=== PATIENT | female | born 1960 | race Caucasian/White ===

== ENCOUNTER 2018-05-24 11:02 | Inpatient (IN) | payer BC ==
[2018-05-24] MEDS ORDERED: Ondansetron 4 MG/2 ML SDV IV PRN (11:37)
[2018-05-24] MEDS ORDERED: Sodium Chloride 0.9% 10 ML Syringe FLUSH PRN (11:37)
[2018-05-24] MEDS ORDERED: Acetaminophen 325 MG Tab PO PRN (11:37)
[2018-05-24] MEDS ORDERED: Albuterol 0.083% 2.5 MG/3 ML Neb Soln NEB PRN (11:37)
[2018-05-24] MEDS ORDERED: Pantoprazole 40 MG Vial IVPUSH SCH (12:00)
[2018-05-24] MEDS: Lactated Ringers 1,000 ML IV SCH ×3 (13:32→22:05)
[2018-05-24] MEDS ORDERED: Bisacodyl 5 MG Tab PO ONE ×2 (14:20→20:00)
--- NOTE | 2018-05-24 14:21 | PCM.HP ---
H&P History of Present Illness - General Date of Service: 05/24/18 Admit Problem/Dx: Admission Diagnosis/Problem Admission Diagnosis/Problem Bleeding Source of Information: Patient, Family, Provider, RN Notes Reviewed History Limitations: Reports: No Limitations - History of Present Illness Initial Comments - Free Text/Narative: Ms. El is a 57-year-old woman who is admitted as a direct admission from the walk-in clinic for further evaluation and management of hematochezia. She was feeling well until early this morning when she woke with some cramping abdominal pain, since then has had several bloody loose stools. She presented to the walk-in clinic and was referred to the hospital for admission for evaluation of probable lower GI bleed. Bloody stools seem to tapered off somewhat since she is been at the walk-in clinic and now hospital. She has only intermittent episodes of cramping abdominal pain. Denies any fevers, chills, or sweats. No previous history of GI bleed and is otherwise fairly healthy except for COPD. - Related Data Allergies/Adverse Reactions: Allergies Allergy/AdvReac Type Severity Reaction Status Date / Time amoxicillin Allergy Cannot Verified 05/19/15 12:13 Remember tramadol Allergy Hives Verified 05/19/15 12:13 Home Medications: Home Meds Albuterol Sulfate [Proair Respiclick] 90 mcg IH QID 05/19/15 [History] Fluticasone/Vilanterol [Breo Ellipta Inhaler] 1 each IH DAILY 05/19/15 [History] Lisinopril/Hydrochlorothiazide [Lisinopril-Hctz 20-25 mg Tab] 1 each PO DAILY [History] Naproxen 1 tab PO ASDIRECTED 05/24/18 [History] Tiotropium [Spiriva Handihaler] 1 ampule IH ASDIRECTED 05/24/18 [History] Past Medical History Respiratory History: Reports: COPD [employer]ER History: Reports: Endocrine/Metabolic History: Reports: Diabetes, Gestational - Infectious Disease History Infectious Disease History: Reports: Chicken Pox - Past Surgical History HEENT Surgical History: Reports: Tonsillectomy Female Surgical History: Reports: Tubal Ligation Social & Family History - Tobacco Use Smoking Status *Q: Current Some Day Smoker Years of Tobacco use: 40 Packs/Tins Daily: 1 - Caffeine Use Caffeine Use: Reports: Coffee - Alcohol Use Days Per Week of Alcohol Use: 4 Number of Drinks Per Day: 3 Total Drinks Per Week: 12 - Recreational Drug Use Recreational Drug Use: No H&P Review of Systems - Review of Systems: Review Of Systems: See Below General: Denies: Fever, Chills, Weakness HEENT: Reports: No Symptoms Pulmonary: Reports: No Symptoms Cardiovascular: Reports: No Symptoms Gastrointestinal: Reports: Abdominal Pain, Diarrhea, Decreased Appetite, Hematochezia. Denies: Constipation, Difficulty Swallowing, Distension, Nausea, Vomiting Genitourinary: Reports: No Symptoms Musculoskeletal: Reports: No Symptoms Skin: Reports: No Symptoms Psychiatric: Reports: No Symptoms Neurological: Reports: No Symptoms Hematologic/Lymphatic: Reports: No Symptoms Immunologic: Reports: No Symptoms Exam - Exam Exam: See Below - Vital Signs Vital Signs: Last Vital Signs Temp 97.7 F 05/24/18 12:56 Pulse 71 05/24/18 12:56 Resp 15 05/24/18 12:56 BP 127/70 05/24/18 12:56 Pulse Ox 94 L 05/24/18 12:56 Weight: 97 lb - Exam Quality Assessment: DVT Prophylaxis General: Alert, Oriented, Cooperative, Mild Distress HEENT: Conjunctiva Clear, Hearing Intact, Mucosa Moist & [place], Normal Nasal Septum, Posterior Pharynx Clear, Pupils Equal Neck: Supple, Trachea Midline, +2 Carotid Pulse wo Bruit Lungs: Clear to Auscultation, Normal Respiratory Effort, Decreased Breath Sounds. No: Rhonchi, Wheezing Cardiovascular: Regular Rate, Regular Rhythm, Normal S1, Normal S2. No: Systolic Murmur, Diastolic Murmur GI/Abdominal Exam: Soft, Non-Tender, No Organomegaly, No Distention Back Exam: Normal Inspection, Full Range of Motion Extremities: Non-Tender, No Pedal Edema Skin: Warm, Dry, Intact Neurological: Cranial Nerves Intact, Strength Equal Bilateral, Normal Speech, Normal Tone, Sensation Intact. No: Focal Deficit Neuro Extensive - Mental Status: Alert, Oriented x3, Normal Mood/Affect, Normal Cognition, Memory Intact - Patient Data Lab Results Last 24 hrs: Laboratory Results - last 24 hr 05/24/18 05/24/18 05/24/18 Range/Units 11:20 11:37 11:41 WBC 12.1 H (4.5-11.0) K/uL RBC 4.43 (3.30-5.50) M/uL Hgb 13.9 (12.0-15.0) g/dL Hct 43.1 (36.0-48.0) % MCV 97 (80-98) fL MCH 31 (27-31) pg MCHC 32 (32-36) % Plt Count 377 (150-400) K/uL Neut % (Auto) 80 H (36-66) % Lymph % (Auto) 11 L (24-44) % [place] % (Auto) 6 (2-6) % Eos % (Auto) 2 (2-4) % Baso % (Auto) 0 (0-1) % Sodium 139 L (140-148) mmol/L Potassium 4.1 (3.6-5.2) mmol/L Chloride 100 (100-108) mmol/L Carbon Dioxide 29 (21-32) mmol/L Anion Gap 14.1 H (5.0-14.0) mmol/L BUN 18 (7-18) mg/dL Creatinine 1.0 (0.6-1.0) mg/dL Est Cr Clr Drug Dosing TNP Estimated GFR (MDRD) 57 L (>60) Glucose 95 (74-106) mg/dL Calcium 9.6 (8.5-10.1) mg/dL Magnesium 2.3 (1.8-2.4) mg/dL Total Bilirubin 0.7 (0.2-1.0) mg/dL AST 26 (15-37) U/L ALT 27 (12-78) U/L Alkaline Phosphatase 82 (46-116) U/L Total Protein 7.8 (6.4-8.2) g/dL Albumin 4.5 (3.4-5.0) g/dL Globulin 3.3 (2.3-3.5) g/dL Albumin/Globulin Ratio 1.4 (1.2-2.2) Blood Type A POSITIVE Gel Antibody Screen Negative Crossmatch See Detail Result Diagrams: 05/24/18 11:20 05/24/18 11:37 *Q Meaningful Use (ADM) - VTE *Q VTE Pharmacological Contraindications *Q: Active Hemorrhage - VTE Risk Assess *Q Each Risk Factor Represents 1 Point: Age 41 - 59 years, Abnormal Pulmonary Function (COPD) Total Score 1 Point Risk Factors: 2 Each Risk Factor Represents 2 Points: None Total Score 2 Point Risk Factors: 0 Each Risk Factor Represents 3 Points: None Total Score 3 Point Risk Factors: 0 Each Risk Factor Represents 5 Points: None Total Score 5 Point Risk Factors: 0 Venous Thromboembolism Risk Factor Score *Q: 2 Problem List Initiated/Reviewed/Updated: Yes Orders Last 24hrs: Active Orders 24 hr Category Date Time Status Patient Status [ADT] Routine ADT 05/24/18 11:37 Active Ambulate [RC] QID Care 05/24/18 11:37 Active Antiembolic Devices [RC] .Routine Care 05/24/18 11:37 Active Cardiac Monitoring [RC] .As Directed Care 05/24/18 11:38 Active Height and Weight [RC] DAILY Care 05/24/18 11:37 Active Intake and Output [RC] QSHIFT Care 05/24/18 11:37 Active Notify Provider Consults [RC] ASDIRECTED Care 05/24/18 11:40 Active Notify Provider Vital Signs [RC] ASDIRECTED Care 05/24/18 11:37 Active Oxygen Therapy [RC] PRN Care 05/24/18 11:37 Active Peripheral IV Care [RC] . DIRECTED Care 05/24/18 11:40 Active RT Aerosol Therapy [RC] ASDIRECTED Care 05/24/18 11:40 Active Up With Assistance [RC] ASDIRECTED Care 05/24/18 11:37 Active Up to Chair [RC] QID Care 05/24/18 11:37 Active VTE/DVT Education [RC] Per Unit Routine Care 05/24/18 11:37 Active Verify Patient Consent Obtain [RC] ASDIRECTED Care 05/24/18 14:20 Ordered Vital Signs [RC] Q4H Care 05/24/18 11:37 Active Consult to Physician [CONS] Routine Cons 05/24/18 11:37 Ordered Nothing per Oral Now Diet [DIET] Diet 05/24/18 Lunch Active BASIC METABOLIC PANEL,BMP [CHEM] Timed Lab 05/25/18 05:00 Ordered CBC WITH AUTO DIFF [HEME] AM Lab 05/25/18 05:11 Ordered HGB [HEMOGLOBIN] [HEME] Stat Lab 05/24/18 17:00 Ordered HGB [HEMOGLOBIN] [HEME] Stat Lab 05/24/18 23:00 Ordered MAGNESIUM [CHEM] AM Lab 05/25/18 05:11 Ordered PATIENT RETYPE [BBK] Stat Lab 05/24/18 11:41 Results RED BLOOD CELLS LP [BBK] Stat Lab 05/24/18 11:41 Results TYPE AND SCREEN [BBK] Stat Lab 05/24/18 11:41 Results Acetaminophen [Tylenol] Med 05/24/18 11:37 Active 650 mg PO Q4H PRN Albuterol Sulfate [Proair Respiclick] Med 05/24/18 16:00 Ordered 90 mcg IH QID Albuterol [Proventil Neb Soln] Med 05/24/18 11:37 Active 2.5 mg NEB Q4H PRN Bisacodyl [Dulcolax] Med 05/24/18 14:20 Once 10 mg PO ONETIME ONE Bisacodyl [Dulcolax] Med 05/24/18 20:00 Once 10 mg PO ONETIME ONE Fluticasone/Vilanterol [Breo Ellipta 100-25 MCG Med 05/25/18 09:00 Ordered Inhalation Kit] 1 each IH DAILY Lactated Ringers [Ringers, Lactated] 1,000 ml Med 05/24/18 11:45 Active IV ASDIRECTED Lisinopril [Prinivil] Med 05/25/18 09:00 Active 20 mg PO DAILY Ondansetron [Zofran] Med 05/24/18 11:37 Active 4 mg IV Q4H PRN Pantoprazole [ProTONIX IV] Med 05/24/18 12:00 Active 40 mg IVPUSH Q24H Polyethylene Glycol 3350 [MiraLAX] Med 05/24/18 17:00 Once 238 gm PO ONETIME ONE Sodium Chloride 0.9% [Saline Flush] Med 05/24/18 11:37 Active 10 ml FLUSH ASDIRECTED PRN hydroCHLOROthiazide Med 05/25/18 09:00 Active 25 mg PO DAILY Peripheral IV Insertion Adult [OM.PC] Routine Oth 05/24/18 11:37 Ordered Schedule Procedure [COMM] Routine Oth 05/24/18 14:20 Ordered Sequential Compression Device [OM.PC] Per Unit Routine Oth 05/24/18 11:38 Ordered VTE Pharmacological Contraindications [AST] Per Unit Oth 05/24/18 11:37 Ordered Routine Resuscitation Status Routine Resus Stat 05/24/18 11:37 Ordered Medication Orders Acetaminophen (Tylenol) 650 mg PO Q4H PRN PRN Reason: Pain (Mild 1-3)/fever Albuterol (Proventil Neb Soln) 2.5 mg NEB Q4H PRN PRN Reason: Shortness Of Breath/wheezing Bisacodyl (Dulcolax) 10 mg PO ONETIME ONE Stop: 05/24/18 14:21 Bisacodyl (Dulcolax) 10 mg PO ONETIME ONE Stop: 05/24/18 20:01 Hydrochlorothiazide (Hydrochlorothiazide) 25 mg PO DAILY [facility] Lactated Ringer's (Ringers, Lactated) 1,000 mls @ 125 mls/hr IV ASDIRECTED [facility] Last Admin: 05/24/18 13:32 Dose: 125 mls/hr Lisinopril (Prinivil) 20 mg PO DAILY [facility] Non-Formulary Medication (Albuterol Sulfate [Proair Respiclick]) 90 mcg IH QID [facility] Non-Formulary Medication (Fluticasone/Vilanterol [Breo Ellipta 100-25 Mcg Inhalation Kit]) 1 each IH DAILY [facility] Ondansetron HCl (Zofran) 4 mg IV Q4H PRN PRN Reason: Nausea/Vomiting Pantoprazole Sodium (Protonix Iv) 40 mg IVPUSH Q24H [facility] Last Admin: 05/24/18 13:31 Dose: 40 mg Sodium Chloride (Saline Flush) 10 ml FLUSH ASDIRECTED PRN PRN Reason: Keep Vein Open Assessment/Plan Comment:: ASSESSMENT AND PLAN LOWER GI BLEED-several episodes of bloody diarrhea associated with cramping abdominal pain noted early into late morning. Currently on no blood thinning medication and has no prior history of GI bleed. Denies any fevers, chills, or sweats. -Nothing by mouth -IV fluids for hydration -Colonoscopy prep -Serial hemoglobin levels -Type and cross 2 units of red blood cells for future use if needed -Consult Dr. Allen for colonoscopy in a.m. COPD-no evidence of acute exacerbation -Continue outpatient medications -Nebulized albuterol as needed MAINTENANCE ISSUES -DVT prophylaxis; SCUDs, hold on anticoagulation because of acute bleeding -GI prophylaxis; Protonix IV -Maharaj catheter; not indicated -Nutrition; nothing by mouth -Nicotine dependence; 14 mg nicotine patch and nicotine inhaler CODE STATUS-FULL CODE ADMISSION STATUS-patient will be admitted to inpatient status, expect at least a 2 night hospital stay for evaluation and management of problems as outlined above. At the time of this admission I do not reasonably expected evaluation and management of this problem will require more than a 96 hour hospital stay. DISPOSITION-anticipate discharge to home after the hospital stay. PRIMARY CARE PROVIDER-Eleuterio Fitzgerald
[2018-05-24] MEDS ORDERED: Nicotine 10 MG/Cartridge Inhaler 168 Cartridges/Box INH PRN (14:23)
[2018-05-24] MEDS: Nicotine 14 MG/24 Hr Patch TRDERM SCH (15:01)
[2018-05-24] MEDS ORDERED: Polyethylene Glycol 3350 Powder 238 GM Bot PO ONE (17:00)
[2018-05-25] MEDS: Lactated Ringers 1,000 ML IV SCH (04:39)
[2018-05-25] MEDS ORDERED: fentaNYL 100 MCG/2 ML SDV ONE (07:13)
[2018-05-25] MEDS ORDERED: Midazolam 1 MG/ML 2 ML SDV ONE (07:14)
[2018-05-25] MEDS ORDERED: Propofol 200 MG/20 ML SDV ONE (07:14)
[2018-05-25] MEDS ORDERED: Lactated Ringers 0 ML ONE (07:48)
[2018-05-25] MEDS ORDERED: Lisinopril 20 MG Tab PO SCH (09:00)
[2018-05-25] MEDS ORDERED: Non-Formulary Medication 1 Each (Fluticasone/Vilanterol [Breo Ellipta 100-25 Mcg Inhalatio IH SCH (09:00)
[2018-05-25] MEDS ORDERED: BREO ELLIPTA INH SCH (09:00)
[2018-05-25] MEDS ORDERED: Hydrochlorothiazide 25 MG Tab PO SCH (09:00)
[2018-05-25 09:45] VITALS: BP 145/73
[2018-05-25] MEDS: Nicotine 14 MG/24 Hr Patch TRDERM SCH (10:08)
--- NOTE | 2018-05-25 10:33 | PCM.DCSUM1 ---
Discharge Summary - Hospital Course Brief History: Ms. Tran is a 57-year-old woman who is admitted as a direct admission from the clinic for further evaluation and management of cramping abdominal pain and bloody diarrhea. - Discharge Data Discharge Date: 05/25/18 Discharge Disposition: Home, Self-Care 01 Condition: Fair - Discharge Diagnosis/Problem(s) (1) Infectious colitis SNOMED Code(s): 15016219 ICD Code: A09 - INFECTIOUS GASTROENTERITIS AND COLITIS, UNSPECIFIED Status : Acute Current Visit: Yes (2) Hematochezia SNOMED Code(s): 078141693 ICD Code: K92.1 - MELENA Status: Acute Current Visit: Yes (3) Diarrhea SNOMED Code(s): 04040440 ICD Code: R19.7 - DIARRHEA, UNSPECIFIED Status: Acute Current Visit: Yes - Patient Summary/Data Consults: Consultations 05/24/18 11:37 Consult to Physician [CONS] Routine Consulting Provider: Sachin Allen Courtesy Call Completed to Consulting Physician: Yes Reason for Consult: Lower GI bleed, colonoscopy in a.m. Hospital Course: Ms. El is a 57-year-old woman who is admitted as a direct admission from the walk-in clinic for further evaluation and management of hematochezia. She was feeling well until early this morning when she woke with cramping abdominal pain, since then has had several bloody loose stools. She presented to the walk-in clinic and was referred to the hospital for admission for evaluation of probable lower GI bleed. Bloody stools seem to tapered off somewhat since she has been at the walk-in clinic and now at the hospital. She has only intermittent episodes of cramping abdominal pain. Denies any fevers, chills, or sweats. No previous history of GI bleed and is otherwise fairly healthy except for COPD. On admission she was given IV fluids for hydration and kept nothing by mouth. Serial hemoglobin levels were obtained and did drop with hydration, there was no further evidence of active bleeding after admission to the hospital. On the morning after admission she was seen and evaluated by Dr. Allen, colonoscopy was performed. Colonoscopy showed evidence of diverticulitis but no evidence of active bleeding. She was noted to have mild to moderate colitis in the sigmoid colon which was felt to be the source of recent bloody diarrhea. No other obvious lesions or abnormalities were identified. She originally had been admitted as inpatient status as it was felt that she would require at least a 2 night hospitalization. With stable hemoglobin and no further evidence of active bleeding as well as the colitis is probable source of bleeding was felt she could be safely discharged home after one night of hospitalization. She will be discharged home on oral antibiotic therapy for one week with ciprofloxacin and Flagyl. She will return to the hospital if she notes increase in symptoms specifically diarrhea, bloody stool, increasing abdominal pain, or fever. Activity will be as tolerated and she will be on a soft low residue diet. Follow -up appointment will be scheduled with her primary care provider within one week. Cultures and biopsies obtained at the time of colonoscopy are not available at the time of discharge and should be reviewed at the time of outpatient follow-up. She is been instructed to take probiotic tablet 1 twice daily for the next several weeks. She has also been counseled and encouraged to consider smoking cessation especially in light of her underlying COPD. - Patient Instructions Diet: GI Soft/Low Residue/Low Fiber Activity: As Tolerated Other/Special Instructions: Please schedule follow-up appointment with primary care provider within one week. Take a probiotic tablet 1 twice daily for the next several weeks. - Discharge Plan *PRESCRIPTION DRUG MONITORING PROGRAM REVIEWED*: Not Applicable *COPY OF PRESCRIPTION DRUG MONITORING REPORT IN PATIENT SONAM: Not Applicable Prescriptions/Med Rec: RX: Ciprofloxacin [Ciprofloxacin HCl] 500 mg PO BID #14 tab metroNIDAZOLE [Flagyl] 500 mg PO Q8H #21 tab Home Medications: Home Meds RX: Albuterol Sulfate [Proair Respiclick] 90 mcg IH QID 05/19/15 [History] RX: Fluticasone/Vilanterol [Breo Ellipta 100-25 MCG Inhalation Kit] 1 each IH DAILY 05/19/15 [History] RX: Lisinopril/Hydrochlorothiazide [Lisinopril-Hctz 20-25 mg Tab] 1 each PO DAILY 05/19/15 [History] RX: Naproxen 1 tab PO ASDIRECTED 05/24/18 [History] RX: Tiotropium [Spiriva Handihaler] 1 ampule IH ASDIRECTED 05/24/18 [History] RX: Ciprofloxacin [Ciprofloxacin HCl] 500 mg PO BID #14 tab 05/25/18 [Rx] metroNIDAZOLE [Flagyl] 500 mg PO Q8H #21 tab 05/25/18 [Rx] - Discharge Summary/Plan Comment DC Time >30 min.: No - Patient Data Vitals - Most Recent: Last Vital Signs Temp 96.6 F 05/25/18 09:16 Pulse 74 05/25/18 09:48 Resp 18 05/25/18 09:48 BP 145/73 H 05/25/18 09:48 Pulse Ox 97 05/25/18 09:48 Weight - Most Recent: 97 lb I&O - Last 24 hours: Intake & Output 05/24/18 05/25/18 05/25/18 22:59 06:59 14:59 Intake Total 1700 Balance 1700 Lab Results - Last 24 hrs: Laboratory Results - last 24 hr 05/24/18 05/24/18 05/24/18 Range/Units 11:20 11:37 11:41 WBC 12.1 H (4.5-11.0) K/uL RBC 4.43 (3.30-5.50) M/uL Hgb 13.9 (12.0-15.0) g/dL Hct 43.1 (36.0-48.0) % MCV 97 (80-98) fL MCH 31 (27-31) pg MCHC 32 (32-36) % Plt Count 377 (150-400) K/uL Neut % (Auto) 80 H (36-66) % Lymph % (Auto) 11 L (24-44) % [place] % (Auto) 6 (2-6) % Eos % (Auto) 2 (2-4) % Baso % (Auto) 0 (0-1) % Sodium 139 L (140-148) mmol/L Potassium 4.1 (3.6-5.2) mmol/L Chloride 100 (100-108) mmol/L Carbon Dioxide 29 (21-32) mmol/L Anion Gap 14.1 H (5.0-14.0) mmol/L BUN 18 (7-18) mg/dL Creatinine 1.0 (0.6-1.0) mg/dL Est Cr Clr Drug Dosing TNP Estimated GFR (MDRD) 57 L (>60) Glucose 95 (74-106) mg/dL Calcium 9.6 (8.5-10.1) mg/dL Magnesium 2.3 (1.8-2.4) mg/dL Total Bilirubin 0.7 (0.2-1.0) mg/dL AST 26 (15-37) U/L ALT 27 (12-78) U/L Alkaline Phosphatase 82 (46-116) U/L Total Protein 7.8 (6.4-8.2) g/dL Albumin 4.5 (3.4-5.0) g/dL Globulin 3.3 (2.3-3.5) g/dL Albumin/Globulin Ratio 1.4 (1.2-2.2) Blood Type A POSITIVE Gel Antibody Screen Negative Crossmatch See Detail 05/24/18 05/24/18 05/25/18 Range/Units 17:12 23:00 05:50 WBC 6.8 (4.5-11.0) K/uL RBC 3.92 (3.30-5.50) M/uL Hgb 13.4 13.1 12.4 (12.0-15.0) g/dL Hct 38.3 (36.0-48.0) % MCV 98 (80-98) fL MCH 32 H (27-31) pg MCHC 32 (32-36) % Plt Count 288 (150-400) K/uL Neut % (Auto) 45 (36-66) % Lymph % (Auto) 37 (24-44) % [place] % (Auto) 9 H (2-6) % Eos % (Auto) 9 H (2-4) % Baso % (Auto) 1 (0-1) % Sodium (140-148) mmol/L Potassium (3.6-5.2) mmol/L Chloride (100-108) mmol/L Carbon Dioxide (21-32) mmol/L Anion Gap (5.0-14.0) mmol/L BUN (7-18) mg/dL Creatinine (0.6-1.0) mg/dL Est Cr Clr Drug Dosing Estimated GFR (MDRD) (>60) Glucose (74-106) mg/dL Calcium (8.5-10.1) mg/dL Magnesium (1.8-2.4) mg/dL Total Bilirubin (0.2-1.0) mg/dL AST (15-37) U/L ALT (12-78) U/L Alkaline Phosphatase (46-116) U/L Total Protein (6.4-8.2) g/dL Albumin (3.4-5.0) g/dL Globulin (2.3-3.5) g/dL Albumin/Globulin Ratio (1.2-2.2) Blood Type Gel Antibody Screen Crossmatch 05/25/18 05/25/18 Range/Units 05:50 05:50 WBC (4.5-11.0) K/uL RBC (3.30-5.50) M/uL Hgb (12.0-15.0) g/dL Hct (36.0-48.0) % MCV (80-98) fL MCH (27-31) pg MCHC (32-36) % Plt Count (150-400) K/uL Neut % (Auto) (36-66) % Lymph % (Auto) (24-44) % [place] % (Auto) (2-6) % Eos % (Auto) (2-4) % Baso % (Auto) (0-1) % Sodium 139 L (140-148) mmol/L Potassium 3.6 (3.6-5.2) mmol/L Chloride 101 (100-108) mmol/L Carbon Dioxide 30 (21-32) mmol/L Anion Gap 11.6 (5.0-14.0) mmol/L BUN 10 (7-18) mg/dL Creatinine 0.9 (0.6-1.0) mg/dL Est Cr Clr Drug Dosing 46.75 Estimated GFR (MDRD) > 60 (>60) Glucose 115 H (74-106) mg/dL Calcium 9.1 (8.5-10.1) mg/dL Magnesium 1.8 (1.8-2.4) mg/dL Total Bilirubin (0.2-1.0) mg/dL AST (15-37) U/L ALT (12-78) U/L Alkaline Phosphatase (46-116) U/L Total Protein (6.4-8.2) g/dL Albumin (3.4-5.0) g/dL Globulin (2.3-3.5) g/dL Albumin/Globulin Ratio (1.2-2.2) Blood Type Gel Antibody Screen Crossmatch ANGELA Results - Last 24 hrs: Microbiology 05/25/18 09:08 Clostridium difficile (PCR) - Final Stool / Feces - Stool, Liquid NEGATIVE CDIFF TOXIN 05/25/18 09:08 Stool for WBCs - Final Stool / Feces - Stool, Liquid Med Orders - Current: Current Medications Acetaminophen (Tylenol) 650 mg PO Q4H PRN PRN Reason: Pain (Mild 1-3)/fever Last Admin: 05/25/18 00:17 Dose: 650 mg Albuterol (Proventil Neb Soln) 2.5 mg NEB Q4H PRN PRN Reason: Shortness Of Breath/wheezing Albuterol (Ventolin Hfa) 0 gm INH QIDRT [facility] Last Admin: 05/25/18 07:28 Dose: 2 puff Hydrochlorothiazide (Hydrochlorothiazide) 25 mg PO DAILY [facility] Last Admin: 05/25/18 09:40 Dose: 25 mg Lactated Ringer's (Ringers, Lactated) 1,000 mls @ 125 mls/hr IV ASDIRECTED [facility] Last Admin: 05/25/18 04:39 Dose: 125 mls/hr Lisinopril (Prinivil) 20 mg PO DAILY [facility] Last Admin: 05/25/18 09:40 Dose: 20 mg Nicotine (Habitrol) 14 mg TRDERM DAILY [facility] Last Admin: 05/25/18 10:08 Dose: 14 mg Nicotine (Nicotrol) 10 mg INH Q1H PRN PRN Reason: Other Last Admin: 05/24/18 15:00 Dose: 10 mg Ondansetron HCl (Zofran) 4 mg IV Q4H PRN PRN Reason: Nausea/Vomiting Pantoprazole Sodium (Protonix Iv) 40 mg IVPUSH Q24H [facility] Last Admin: 05/24/18 13:31 Dose: 40 mg Breo Ellipta 200/25 (Inhaler (Ptom)) 0 each INH DAILY [facility] Last Admin: 05/25/18 08:03 Dose: 1 each Sodium Chloride (Saline Flush) 10 ml FLUSH ASDIRECTED PRN PRN Reason: Keep Vein Open Discontinued Medications Bisacodyl (Dulcolax) 10 mg PO ONETIME ONE Stop: 05/24/18 14:21 Last Admin: 05/24/18 15:03 Dose: 10 mg Bisacodyl (Dulcolax) 10 mg PO ONETIME ONE Stop: 05/24/18 20:01 Last Admin: 05/24/18 20:37 Dose: 10 mg Fentanyl (Sublimaze) Confirm Administered Dose 100 mcg .ROUTE .STK-MED ONE Stop: 05/25/18 07:14 Lactated Ringer's (Ringers, Lactated) Confirm Administered Dose 1,000 mls @ as directed .ROUTE .STK-MED ONE Stop: 05/25/18 07:49 Midazolam HCl (Versed 1 Mg/Ml) Confirm Administered Dose 2 mg .ROUTE .STK-MED ONE Stop: 05/25/18 07:15 Polyethylene Glycol (Miralax) 238 gm PO ONETIME ONE Stop: 05/24/18 17:01 Last Admin: 05/24/18 17:09 Dose: 238 gm Propofol (Diprivan 20 Ml) Confirm Administered Dose 200 mg .ROUTE .STK-MED ONE Stop: 05/25/18 07:15 - Exam Quality Assessment: Reports: DVT Prophylaxis General: Reports: Alert, Oriented, Cooperative, Mild Distress Lungs: Reports: Clear to Auscultation, Normal Respiratory Effort, Decreased Breath Sounds. Denies: Wheezing Cardiovascular: Reports: Regular Rate, Regular Rhythm, No Murmurs GI/Abdominal Exam: Soft, No Organomegaly, Tender. No: Distended, Guarding, Rigid, Rebound Extremities: Non-Tender, No Pedal Edema *Q Meaningful Use (DIS) - VTE *Q VTE Pharmacological Contraindications *Q: Active Hemorrhage
--- NOTE | 2018-06-03 11:55 | OR ---
DATE OF PROCEDURE: 05/25/2018 PREOPERATIVE DIAGNOSIS: Recent rectal bleeding. POSTOPERATIVE DIAGNOSES: 1. Recent rectal bleeding with probable colitis involving the descending and sigmoid colon and to a lesser extent the cecum (transverse colon and rectum spared). 2. Valladares-diverticulosis. 3. No active blood or bleeding seen. PROCEDURE: Flexible colonoscopy with: 1. Collection of stool for culture and sensitivity (02114). 2. Biopsies of sigmoid colon for histologic evaluation ([id number]). ANESTHESIA: IV sedation. INDICATION FOR PROCEDURE: This is a 57-year-old admitted yesterday with an episode of rectal bleeding. The plan is to proceed with flexible colonoscopy with biopsies and/or polypectomy as indicated. Potential risks including bleeding and perforation were discussed, and the patient wishes to proceed. DETAILS OF PROCEDURE: The patient was taken to the operating room and placed in a left lateral decubitus position. IV sedation was administered. Initial digital rectal exam was performed, it was unremarkable. Colonoscope was passed into the rectum and retroflexion revealed what were only some minimally excoriated hemorrhoids. Scope was eventually passed to the cecum. The prep was fairly good. There was a small amount of liquid stool present. At no point during the entire exam was there any blood or bleeding identified. In the sigmoid colon, there were some areas of reddened and edematous colon. No obvious ulcerations or erosions were present, but this would be consistent with recent bleeding source. This extended from the sigmoid colon up to the descending colon. As we entered the area of the splenic flexure and transverse colon, the mucosa appeared to be normalized. There was slight patchy redness and edema in the cecum also, but this was not nearly as involved as the sigmoid colon and descending colon. Throughout the exam, stool was obtained and sent for microbiologic workup. The patient had also valladares-diverticulosis, which was otherwise uncomplicated in appearance. Scope was then withdrawn and after biopsy had been completed, minimal bleeding was seen and the procedure concluded. The patient was taken to the recovery room in satisfactory condition. Case will be reviewed with Dr. Malave, on-call hospitalist, regarding management. Sachin Allen MD /[id number]
== END 2018-05-25 11:02 | disposition home or self-care (01) | DRG 249 ==
LOC: JP.ICU 11:02
PROVIDERS: ADMIT Hospitalist; ATTEND Hospitalist
PROC: 0DBN8ZX Excision of Sigmoid Colon, Via Natural or Artificial Opening Endoscopic, Diagnostic (ICD-10-PCS; principal; 2018-05-25)
PROC: 0D9E8ZX Drainage of Large Intestine, Via Natural or Artificial Opening Endoscopic, Diagnostic (ICD-10-PCS; 2018-05-25)
DX: A09 Infectious gastroenteritis and colitis, unspecified (principal); K92.1 Melena; K57.30 Diverticulosis of large intestine without perforation or abscess without bleeding; J44.9 Chronic obstructive pulmonary disease, unspecified; K57.92 Diverticulitis of intestine, part unspecified, without perforation or abscess without bleeding; F17.210 Nicotine dependence, cigarettes, uncomplicated; I10 Essential (primary) hypertension; K21.9 Gastro-esophageal reflux disease without esophagitis; Z88.6 Allergy status to analgesic agent; Z88.1 Allergy status to other antibiotic agents; Z79.899 Other long term (current) drug therapy
CPT/HCPCS: 36415; 80048; 80053; 83735; 85018; 85025; 86850; 86900; 86901; 86920; 86922; 87046; 87177; 87209; 87493; 87899; 88305; 89055; 94640; A9270-GY; C9113; J2250; J2704; J3010; J7120

== ENCOUNTER 2021-12-04 13:46 | Emergency (ER) | payer BC ==
[2021-12-04] MEDS ORDERED: Benzonatate 100 MG Cap PO ONE (15:19)
[2021-12-04] MEDS ORDERED: Albuterol/Ipratropium 3.0-0.5 MG/3 ML Neb Soln NEB ONE (15:19)
[2021-12-04] MEDS ORDERED: predniSONE 20 MG Tab PO ONE (15:22)
[2021-12-04 16:20] VITALS: BP 120/62; PULSE 88
== END 2021-12-04 17:01 | disposition home or self-care (01) ==
LOC: JP.ED 13:46
DX: J44.1 Chronic obstructive pulmonary disease with (acute) exacerbation (principal); F17.210 Nicotine dependence, cigarettes, uncomplicated; Z88.1 Allergy status to other antibiotic agents; Z88.5 Allergy status to narcotic agent; Z79.899 Other long term (current) drug therapy; Z20.822 Contact with and (suspected) exposure to COVID-19
CPT/HCPCS: 36415; 71046; 83880; 84145; 85025; 86140; 87635; 94640; 99285; A9270; J7512; J7620; U0002

== ENCOUNTER 2022-02-10 01:39 | Inpatient (IN) | payer BC ==
[2022-02-10] MEDS ORDERED: Sodium Chloride 0.9% 10 ML Syringe FLUSH PRN (01:42)
[2022-02-10] MEDS ORDERED: methylPREDNISolone Sodium Succinate 125 MG/2 ML SDV IVPUSH ONE (01:42)
[2022-02-10 02:33] LABS: CORONAVIRUS COVID-19 NAA NEGATIVE (NEGATIVE)
[2022-02-10 02:39] LABS: ESTIMATED GFR 83 mL/min (>60)
[2022-02-10] MEDS ORDERED: Albuterol/Ipratropium 3.0-0.5 MG/3 ML Neb Soln NEB PRN (02:43)
[2022-02-10] MEDS ORDERED: Morphine 2 MG/ML SYRINGE IVPUSH PRN (04:39)
[2022-02-10] MEDS ORDERED: Ondansetron 4 MG/2 ML SDV IV PRN (04:39)
[2022-02-10] MEDS ORDERED: oxyCODONE 5 MG Tab PO PRN (04:39)
[2022-02-10] MEDS ORDERED: Ondansetron 4 MG Tab.DIS PO PRN (04:39)
[2022-02-10] MEDS ORDERED: Docusate Sodium 100 MG Cap PO PRN (04:39)
[2022-02-10] MEDS ORDERED: Albuterol 0.083% 2.5 MG/3 ML Neb Soln NEB PRN (04:39)
[2022-02-10] MEDS ORDERED: Bisacodyl 5 MG Tab PO PRN (04:39)
[2022-02-10] MEDS ORDERED: cefTRIAXone 1 GM in Sodium Chloride 0.9% 50 ML IV SCH (04:45)
[2022-02-10] MEDS ORDERED: Sodium Chloride 0.9% 1,000 ML IV SCH (04:45)
[2022-02-10] MEDS: Nicotine 14 MG/24 Hr Patch TRDERM SCH ×2 (05:31→08:28)
[2022-02-10] MEDS ORDERED: Albuterol/Ipratropium 3.0-0.5 MG/3 ML Neb Soln NEB SCH (06:00)
[2022-02-10] MEDS: Albuterol/Ipratropium 3.0-0.5 MG/3 ML Neb Soln NEB SCH ×4 (07:12→20:33)
[2022-02-10] MEDS ORDERED: methylPREDNISolone Sodium Succinate 40 MG/1 ML SDV IV SCH (08:10)
[2022-02-10] MEDS: Pantoprazole 40 MG Tab.CR PO SCH (08:29)
[2022-02-10] MEDS: methylPREDNISolone Sodium Succinate 125 MG/2 ML SDV IV SCH ×3 (08:29→19:44)
[2022-02-10] MEDS: Enoxaparin 40 MG/0.4 ML Syringe SUBCUT SCH (08:30)
[2022-02-10] MEDS: Losartan 50 MG Tab PO SCH (08:30)
[2022-02-10] MEDS ORDERED: Pantoprazole 40 MG Vial IV SCH (09:00)
[2022-02-10] MEDS: Codeine/guaiFENesin 10-100 MG/5 ML Syrup 5 ML Cup PO PRN ×2 (11:00→17:02)
[2022-02-10] MEDS: Doxycycline 100 MG in Sodium Chloride 0.9% 100 ML IV SCH (17:26)
[2022-02-10] MEDS: Benzonatate 100 MG Cap PO PRN (20:33)
[2022-02-11] MEDS: methylPREDNISolone Sodium Succinate 125 MG/2 ML SDV IV SCH ×3 (02:51→14:49)
[2022-02-11] MEDS: cefTRIAXone 1 GM in Sodium Chloride 0.9% 50 ML IV SCH (05:10)
[2022-02-11] MEDS: Doxycycline 100 MG in Sodium Chloride 0.9% 100 ML IV SCH ×2 (05:44→17:58)
[2022-02-11] MEDS: Albuterol/Ipratropium 3.0-0.5 MG/3 ML Neb Soln NEB SCH ×4 (07:36→21:15)
[2022-02-11] MEDS: Pantoprazole 40 MG Tab.CR PO SCH (07:47)
[2022-02-11] MEDS: Losartan 50 MG Tab PO SCH (08:07)
[2022-02-11] MEDS: Nicotine 14 MG/24 Hr Patch TRDERM SCH (08:07)
[2022-02-11] MEDS: Enoxaparin 40 MG/0.4 ML Syringe SUBCUT SCH (08:07)
[2022-02-11] MEDS: Acetaminophen 325 MG Tab PO PRN ×2 (10:12→22:42)
[2022-02-11] MEDS: Codeine/guaiFENesin 10-100 MG/5 ML Syrup 5 ML Cup PO PRN ×2 (11:25→21:26)
[2022-02-11] MEDS ORDERED: Metoprolol Tartrate 25 MG Tab PO ONE ×2 (15:15)
[2022-02-11] MEDS: Benzonatate 100 MG Cap PO PRN (17:11)
[2022-02-11] MEDS: methylPREDNISolone Sodium Succinate 40 MG/1 ML SDV IVPUSH SCH (21:15)
[2022-02-11] MEDS: Metoprolol Tartrate 25 MG Tab PO SCH (21:15)
[2022-02-12] MEDS: cefTRIAXone 1 GM in Sodium Chloride 0.9% 50 ML IV SCH (05:12)
[2022-02-12] MEDS: methylPREDNISolone Sodium Succinate 40 MG/1 ML SDV IVPUSH SCH (05:12)
[2022-02-12] MEDS: Doxycycline 100 MG in Sodium Chloride 0.9% 100 ML IV SCH (06:53)
[2022-02-12] MEDS: Albuterol/Ipratropium 3.0-0.5 MG/3 ML Neb Soln NEB SCH ×2 (07:30→11:02)
[2022-02-12 07:36] VITALS: BP 152/78; PULSE 88
[2022-02-12] MEDS: Codeine/guaiFENesin 10-100 MG/5 ML Syrup 5 ML Cup PO PRN (07:41)
[2022-02-12] MEDS: Pantoprazole 40 MG Tab.CR PO SCH (07:41)
[2022-02-12] MEDS: Losartan 50 MG Tab PO SCH (08:18)
[2022-02-12] MEDS: Metoprolol Tartrate 25 MG Tab PO SCH (08:19)
[2022-02-12] MEDS: Nicotine 14 MG/24 Hr Patch TRDERM SCH (08:19)
[2022-02-12] MEDS: Enoxaparin 40 MG/0.4 ML Syringe SUBCUT SCH (08:19)
== END 2022-02-12 11:28 | disposition home or self-care (01) | DRG 133 ==
LOC: JP.ED 01:39 → JP.MS 04:36
PROVIDERS: ADMIT Hospitalist; ATTEND Hospitalist
DX: J96.02 Acute respiratory failure with hypercapnia (principal); J44.1 Chronic obstructive pulmonary disease with (acute) exacerbation; F17.210 Nicotine dependence, cigarettes, uncomplicated; E78.00 Pure hypercholesterolemia, unspecified; I10 Essential (primary) hypertension; M54.9 Dorsalgia, unspecified; M54.2 Cervicalgia; G89.29 Other chronic pain; Z20.822 Contact with and (suspected) exposure to COVID-19; Z88.0 Allergy status to penicillin; Z79.51 Long term (current) use of inhaled steroids; Z79.899 Other long term (current) drug therapy
CPT/HCPCS: 0241U; 36415; 71045; 71045-26; 80053; 85025; 86140; 94640; A9270-GY; J0696; J1650; J2920; J2930; J3490; J7030; J7620

== ENCOUNTER 2022-06-06 06:42 | Emergency (ER) | payer BC ==
[2022-06-06 07:04] VITALS: BP 154/67; PULSE 94
[2022-06-06] MEDS ORDERED: Sodium Chloride 0.9% 10 ML Syringe FLUSH PRN (07:06)
[2022-06-06] MEDS ORDERED: methylPREDNISolone Sodium Succinate 125 MG/2 ML SDV IVPUSH ONE (07:09)
[2022-06-06] MEDS ORDERED: Albuterol/Ipratropium 3.0-0.5 MG/3 ML Neb Soln NEB ONE (07:33)
[2022-06-06 07:43] LABS: ESTIMATED GFR 72 mL/min (>60); TROPONIN I HIGH SENSITIVITY 5.9 pg/mL (<=60.3)
[2022-06-06 08:11] LABS: CORONAVIRUS COVID-19 NAA NEGATIVE (NEGATIVE)
== END 2022-06-06 09:05 | disposition home or self-care (01) ==
LOC: JP.ED 06:42
DX: J44.1 Chronic obstructive pulmonary disease with (acute) exacerbation (principal); E78.00 Pure hypercholesterolemia, unspecified; I10 Essential (primary) hypertension; Z87.891 Personal history of nicotine dependence; Z88.0 Allergy status to penicillin; Z88.5 Allergy status to narcotic agent; Z79.899 Other long term (current) drug therapy; Z20.822 Contact with and (suspected) exposure to COVID-19
CPT/HCPCS: 0241U; 36415; 71046; 80053; 83605; 84484; 85025; 94640; 96374; 99285; J2930; J3490; J7620

== ENCOUNTER 2023-11-22 15:24 | Emergency (ER) | payer BC, MEDICARE ==
[2023-11-22 16:53] VITALS: BP 132/71; PULSE 85
== END 2023-11-22 17:04 | disposition home or self-care (01) ==
LOC: JP.ED 15:24
DX: R07.89 Other chest pain (principal); I10 Essential (primary) hypertension; E78.00 Pure hypercholesterolemia, unspecified; J44.9 Chronic obstructive pulmonary disease, unspecified; F17.210 Nicotine dependence, cigarettes, uncomplicated; Z88.0 Allergy status to penicillin; Z88.5 Allergy status to narcotic agent; Z79.51 Long term (current) use of inhaled steroids; Z79.899 Other long term (current) drug therapy
CPT/HCPCS: 36415; 84484; 93005; 93010; 99284; 99285